=== PATIENT | female | born 1960 | race American Indian/Alaskan Native ===

== ENCOUNTER 2019-11-30 07:10 | Emergency (ER) | payer OTHER ==
--- NOTE | 2019-11-30 07:38 | Cat Scan Report ---
CT HEAD WITHOUT CONTRAST INDICATION / CLINICAL INFORMATION: MAIN: neuro deficits <6hrs or sx present upon awakening RT SIDE DEFICITS, LAST NORMAL 11P LAST NIGHT CODE STROKE [phone]. TECHNIQUE: All CT scans at this location are performed using CT dose reduction for ALARA by means of automated e xposure control. COMPARISON: None available. FINDINGS: HEMORRHAGE: None. EXTRA-AXIAL SPACES: Normal in size and morphology for the patient's age. VENTRICULAR SYSTEM: Normal in size and morphology for the patient's age. CEREBRAL PARENCHYMA: No significant abnormality. No acute territorial infarct. MIDLINE SHIFT OR HERNIATION: None. CEREBELLUM / BRAINSTEM: No significant abnormality. ORBITS: Normal as visualized. SOFT TISSUES of HEAD: No significant abnormality. CALVARIUM: No significant abnormality. PARANASAL SINUSES / MASTOID AIR CELLS: Normal as visualized. ADDITIONAL FINDINGS: None. IMPRESSION: 1. No acute intracranial abnormality. COMMUNICATION: Time of Communication (HEAD OF MATHEMATICS/CDT): 6:30 AM Licensed Practitioner Receiving Report: ED physician Signer Name: Griselda Olsen MD Signed: 11/30/2019 7:34 AM Workstation Name: [id number]
--- NOTE | 2019-11-30 07:47 | Emergency Department Report ---
ED Neuro Deficit HPI - General Chief Complaint: Neuro Symptoms/Deficit Stated Complaint: POSS STROKE Time Seen by Provider: 11/30/19 07:30 Source: patient, EMS Mode of arrival: Stretcher Limitations: Other - History of Present Illness Initial Comments: Patient is 58 years old female with past medical history of hypertension. Patient presented to the ER for evaluation of possible stroke. Patient is a phasic and with significant right facial droop and right upper extremity weakness. Information from the nurse that patient went to bed around 11:00 last night in her normal status and she woke up with this symptoms. Collateral information received from patient charla Jones. Stroke protocol immediately initiated in the ER. Patient moved to CT for emergent CT brain without contrast. Stroke telemetry neurology immediately contacted. Patient examined by neurologist via video conference and stated that patient is not a TPA candidate however patient moved again quickly to the CT for a CT angios of the neck and brain. -: unknown Location: speech, right face, right arm Presenting Symptoms: Present: Weak/Paralyzed One Side History of same: Yes Place: home - Related Data Allergies/Adverse Reactions: Allergies Allergy/AdvReac Type Severity Reaction Status Date / Time No Known Allergies Allergy Verified 11/30/19 07:14 ED Review of Systems ROS: Stated complaint: POSS STROKE Other details as noted in HPI Comment: All other systems reviewed and negative Constitutional: denies: chills, fever Respiratory: denies: cough, shortness of breath, SOB with exertion Cardiovascular: denies: chest pain, palpitations Gastrointestinal: denies: abdominal pain, nausea, vomiting Musculoskeletal: denies: back pain Neurological: weakness, numbness. denies: headache, paresthesias ED Past Medical Hx - Past Medical History Previous Medical History?: Yes Hx Hypertension: Yes ED Neuro Physical Exam - General Limitations: Other General appearance: alert, in no apparent distress Suspected Stroke: Yes - Head Head exam: Present: atraumatic - Eye Eye exam: Present: normal appearance, PERRL - ENT ENT exam: Present: normal exam, normal orophraynx, mucous membranes moist - Neck Neck exam: Present: normal inspection, full ROM. Absent: tenderness, meningismus, lymphadenopathy, thyromegaly - Respiratory Respiratory exam: Present: normal lung sounds bilaterally - Cardiovascular Cardiovascular Exam: Present: regular rate, normal rhythm, normal heart sounds - GI/Abdominal GI/Abdominal exam: Present: soft, normal bowel sounds. Absent: distended, tenderness, guarding, rebound, rigid, organomegaly, mass, bruit, pulsatile mass, hernia - Extremities Exam Extremities exam: Present: normal inspection, full ROM, normal capillary refill. Absent: pedal edema, calf tenderness - Back Exam Back exam: Present: normal inspection, full ROM. Absent: CVA tenderness (R), CVA tenderness (L) - Neurological Exam Neurological exam: Present: alert - NIHSS Assessment Interval: Baseline 1a. Level of Consciousness: alert/keenly responsive 1b. LOC Questions: aphasic 1c. LOC Commands: performs 1 task correctly 2. Best Gaze: normal 3. Visual: no visual loss 4. Facial Palsy: partial paralysis 5b. Motor Arm Right: drift 5a. Motor Arm Left: no drift 6a. Motor Leg Left: no drift 6b. Motor Leg Right: no drift 7. Limb Ataxia: absent 8. Sensory: normal 9. Best Language: severe aphasia 10. Dysarthria: severe dysarthria 11. Extinction/Inattention: no abnormality Total Score: 10 Stroke Severity: Moderate Stroke - Psychiatric Psychiatric exam: Present: normal mood - Skin Skin exam: Present: warm, intact, normal color ED Course Vital Signs 11/30/19 11/30/19 11/30/19 07:23 07:27 07:30 Pulse Rate 81 75 Respiratory 16 15 15 Rate Blood Pressure 172/92 O2 Sat by Pulse 99 Oximetry 11/30/19 11/30/19 11/30/19 07:46 08:00 08:16 Pulse Rate 78 76 78 Respiratory 22 22 15 Rate Blood Pressure 165/106 165/106 119/93 O2 Sat by Pulse 99 98 98 Oximetry 11/30/19 11/30/19 11/30/19 08:30 09:00 09:30 Pulse Rate 82 73 76 Respiratory 15 17 20 Rate Blood Pressure 119/93 142/77 153/80 O2 Sat by Pulse 100 98 Oximetry 11/30/19 11/30/19 10:00 10:30 Pulse Rate Respiratory Rate Blood Pressure 153/80 178/90 O2 Sat by Pulse 100 100 Oximetry - Lab Data Result diagrams: 11/30/19 07:42 11/30/19 07:42 Lab Results 11/30/19 11/30/19 11/30/19 Range/Units 07:42 07:42 07:42 WBC 5.9 (4.5-11.0) K/mm3 RBC 4.47 (3.65-5.03) M/mm3 Hgb 13.5 (10.1-14.3) gm/dl Hct 40.7 (30.3-42.9) % MCV 91 (79-97) fl MCH 30 (28-32) pg MCHC 33 (30-34) % RDW 14.1 (13.2-15.2) % Plt Count 259 (140-440) K/mm3 Lymph % (Auto) 34.6 (13.4-35.0) % [place] % (Auto) 8.9 H (0.0-7.3) % Eos % (Auto) 2.1 (0.0-4.3) % Baso % (Auto) 1.1 (0.0-1.8) % Lymph # 2.0 (1.2-5.4) K/mm3 [place] # 0.5 (0.0-0.8) K/mm3 Eos # 0.1 (0.0-0.4) K/mm3 Baso # 0.1 (0.0-0.1) K/mm3 Seg Neutrophils % 53.3 (40.0-70.0) % Seg Neutrophils # 3.1 (1.8-7.7) K/mm3 PT 12.4 (12.2-14.9) Sec. INR 0.92 (0.87-1.13) APTT 27.8 (24.2-36.6) Sec. Thrombin Time 16.2 (15.1-19.6) Sec. Sodium (137-145) mmol/L Potassium (3.6-5.0) mmol/L Chloride (98-107) mmol/L Carbon Dioxide (22-30) mmol/L Anion Gap mmol/L BUN (7-17) mg/dL Creatinine (0.7-1.2) mg/dL Estimated GFR ml/min BUN/Creatinine Ratio % Glucose (65-100) mg/dL Calcium (8.4-10.2) mg/dL Total Bilirubin (0.1-1.2) mg/dL Direct Bilirubin (0-0.2) mg/dL AST (5-40) units/L ALT (7-56) units/L Alkaline Phosphatase (35-129) units/L Troponin T (0.00-0.029) ng/mL Total Protein (6.3-8.2) g/dL Albumin (3.9-5) g/dL Albumin/Globulin Ratio % //20 Range/Units 07:42 WBC (4.5-11.0) K/mm3 RBC (3.65-5.03) M/mm3 Hgb (10.1-14.3) gm/dl Hct (30.3-42.9) % MCV (79-97) fl MCH (28-32) pg MCHC (30-34) % RDW (13.2-15.2) % Plt Count (140-440) K/mm3 Lymph % (Auto) (13.4-35.0) % [place] % (Auto) (0.0-7.3) % Eos % (Auto) (0.0-4.3) % Baso % (Auto) (0.0-1.8) % Lymph # (1.2-5.4) K/mm3 [place] # (0.0-0.8) K/mm3 Eos # (0.0-0.4) K/mm3 Baso # (0.0-0.1) K/mm3 Seg Neutrophils % (40.0-70.0) % Seg Neutrophils # (1.8-7.7) K/mm3 PT (12.2-14.9) Sec. INR (0.87-1.13) APTT (24.2-36.6) Sec. Thrombin Time (15.1-19.6) Sec. Sodium 138 (137-145) mmol/L Potassium 3.7 (3.6-5.0) mmol/L Chloride 103.2 (98-107) mmol/L Carbon Dioxide 20 L (22-30) mmol/L Anion Gap 19 mmol/L BUN 15 (7-17) mg/dL Creatinine 0.7 (0.7-1.2) mg/dL Estimated GFR > 60 ml/min BUN/Creatinine Ratio 21 % Glucose 115 H (65-100) mg/dL Calcium 9.4 (8.4-10.2) mg/dL Total Bilirubin 0.30 (0.1-1.2) mg/dL Direct Bilirubin < 0.2 (0-0.2) mg/dL AST 15 (5-40) units/L ALT 12 (7-56) units/L Alkaline Phosphatase 83 (35-129) units/L Troponin T < 0.010 (0.00-0.029) ng/mL Total Protein 7.0 (6.3-8.2) g/dL Albumin 4.2 (3.9-5) g/dL Albumin/Globulin Ratio 1.5 % - EKG Data -: EKG Interpreted by Me EKG shows normal: sinus rhythm Rate: normal Interpretation: no acute changes - Radiology Data Radiology results: report reviewed - Medical Decision Making Patient is 58 years old female with past medical history of hypertension. Patient presented to the ER for evaluation of possible stroke. Patient is a phasic and with significant right facial droop and right upper extremity weakness. Information from the nurse that patient went to bed around 11:00 last night in her normal status and she woke up with this symptoms. Collateral information received from patient enriquetaanc Mr. Jones. Stroke protocol immediately initiated in the ER. Patient moved to CT for emergent CT brain without contrast. Stroke telemetry neurology immediately contacted. Patient examined by neurologist via video conference and stated that patient is not a TPA candidate however patient moved again quickly to the CT for a CT angios of the neck and brain. I received a call from radiologist stating that patient CT angios of the brain showed M2 segment occlusion on the left side. I immediately discussed the patient with the neurologist Dr.Yazan Sierra. Patient accepted to be transferred to [facility] for emergency thrombectomy. Patient discussed with Dr. Dunlap and he accepted the patient to be transferred to [place]. Patient flew to [place] for thrombectomy. Patient also discussed with Dr. Barber from [facility] she agreed with a transfer Critical Care Time: Yes Critical care time in (mins) excluding proc time.: 45 Critical care attestation.: If time is entered above; I have spent that time in minutes in the direct care of this critically ill patient, excluding procedure time. ED Disposition Clinical Impression: CVA (cerebral vascular accident) Disposition: DC/TX-70 ANOTHER TYPE HLTHCARE Is pt being admited?: No Condition: Stable Referrals: PRIMARY CARE, [Primary Care Provider] - 3-5 Days
[2019-11-30 07:58] LABS: Basophils # (Auto) 0.1 K/mm3 (0.0-0.1); Basophils % (Auto) 1.1 % (0.0-1.8); Eosinophils # (Auto) 0.1 K/mm3 (0.0-0.4); Eosinophils % (Auto) 2.1 % (0.0-4.3); Hematocrit 40.7 % (30.3-42.9); Hemoglobin 13.5 gm/dl (10.1-14.3); Lymphocytes % (Auto) 34.6 % (13.4-35.0); Mean Corpuscular HGB Conc 33 % (30-34); Mean Corpuscular Volume 91 fl (79-97); Monocytes # (Auto) 0.5 K/mm3 (0.0-0.8); Monocytes % (Auto) 8.9 % (0.0-7.3); Platelet Count 259 K/mm3 (140-440); Red Blood Count 4.47 M/mm3 (3.65-5.03); Red Cell Distribution Width 14.1 % (13.2-15.2)
[2019-11-30 08:08] LABS: INR 0.92 (0.87-1.13)
[2019-11-30 08:09] LABS: Partial Thromboplastin Time 27.8 Sec. (24.2-36.6)
[2019-11-30 08:18] LABS: Alanine Aminotransferase 12 units/L (7-56); Albumin 4.2 g/dL (3.9-5); BUN/Creatinine Ratio 21; Blood Urea Nitrogen 15 mg/dL (7-17); Calcium 9.4 mg/dL (8.4-10.2); Hemolysis Index 7
[2019-11-30 08:19] LABS: Bilirubin,Direct < 0.2 mg/dL (0-0.2)
[2019-11-30 10:41] VITALS: BP 178/90
--- NOTE | 2019-11-30 10:44 | Cat Scan Report ---
CTA neck without and with intravenous contrast material CLINICAL HISTORY: Cerebrovascular accident. Right-sided weakness. TECHNIQUE: Following acquisition of a timing bolus 0.625 mm thick contiguous axial scans were obtained from aort ic arch to the skull base during rapid bolus intravenous contrast infusion. In addition to evaluation of axial source images multiplanar reconstructions were produced and reviewed for this report. 3 collin ne MIP reconstructions were produced and reviewed. FINDINGS: Thoracic aorta:No abnormalities are identified along the course of the thoracic aorta..The origins of the great vessels have an unremarkable appearance. Brachiocephalic artery, left common carotid arter y origin and left subclavian artery all have an unremarkable appearance. Right carotid artery:No abnormalities are seen along the course of the RCCA, at the right carotid bif urcation or along the cervical portions of the GRAHAM. Left carotid artery: No abnormalitiies are noted along the course of the left common carotid artery, at the left carotid bifurcaiton or along th ethe course of the cervical segments of the LICA. Posterior circulation:The vertebral arterires have an unremarkable appearance. Both vertebral arterie s contribute to the basilar artery origin. The basilar artery has an unremarkable appearance. The degree of stenosis, if any, is determined utilizing NASCET like criteria. In this case there is no indication of hemodynamically significant stenosis at the carotid bifurcations or elsewhere. Evaluation of the thyroid gland reveals several mixed attenuation thyroid nodules, the largest of the se measures about 8 mm in diameter. Based on patient's age and size criteria no further evaluation is required. Evaluation of the nonvascular soft tissue structures reveal no additional abnormality. The re is no indication of cervical lymphadenopathy. No abnormalities are seen along the course of the ai rway. Visualized portions of the parotid glands and the submandibular salivary glands have a normal a ppearance. Evaluation of the lung apices reveals no evidence of lung nodule or infiltrate. Evaluation of the cervical spine is remarkable for mild cervical spondylosis with loss of disc height and anterior and posterior osteophyte formation at multiple levels. There is no indication of centra l canal stenosis. Mild left-sided foraminal narrowing is present in several locations. IMPRESSION: 1. No indication of atherosclerotic disease or stenosis on CTA neck. Contrast dose report: Omnipaque 350: 100 ml, administered intravenously All CT examinations performed at this facility utilize modulated dose reduction, iterative reconstruc tion or weight-based dosing, as appropriate, to obtain a radiation dose which is as low as can reason ably be achieved. Signer Name: See Carranza MD Signed: 11/30/2019 10:40 AM Workstation Name: [id number]
--- NOTE | 2019-11-30 10:46 | Cat Scan Report ---
CTA head with intravenous contrast CLINICAL HISTORY: cva TECHNIQUE: 0.625 mm thick contiguous axial scans were obtained from the skull base to the skull vertex during r apid bolus administration of intravenous contrast material. Multiplanar reconstructions were produced in the coronal and sagittal planes. In addition 3 plane MIP instructions were produced and reviewed for this report. The axial source images and reconstructed images were reviewed for this report. CONTRAST DOSE REPORT: Omnipaque 350: 100 ml administered intravenously. All CT scans at this location are performed using CT dose reduction for ALARA by means of automated e xposure control. FINDINGS: Internal carotid arteries:Josue, cavernous, opthalmic, clinoid and supraclinoid segments of the ICAs have an unremarkable appearance. Middle cerebral arteries: There is a branch occlusion of an M2 segment of the left middle cerebral ar autumn in the sylvian fissure. This located about 7 mm distal to the terminal bifurcation of the left M 1 segment. There is resultant decreased size and number of M2 and M3 branches of the left middle cere bral artery. Contrast density within the visualized left MCA branches is decreased compared to those on the right. The location of the occlusion is best demonstrated on sagittal reconstructed sequences (series 606, image 52 and 53 and axial 3-D mapping reconstruction, series 605 image 22).) The right middle cerebral artery, right MCA bifurcations, insular and opercular branches of the right middle cerebral artery have an unremarkable appearance. Anterior cerebral arteries:No abnormality. Vertebral arteries: No dominant vertebral arteries both contribute to the basilar artery origin. Basi lar artery has an unremarkable appearance. Basilar artery: No abnormality Posterior cerebral arteries: Symmetrical appearing posterior cerebral arteries are demonstrated. Dural sinuses: Dural venous sinuses are well demonstrated on this exam. There is no evidence of dural sinus thrombosis. 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 IMPRESSION: 1. Findings indicate M2 segment branch occlusion on the left as described in detail above. There is r esultant decreased number of left-sided insular and opercular MCA branches in decreased contrast dens ity in the left MCA distribution. Time of discovery: 0925 Central standard time. Notification: I called report of this study to Dr. Waddell of the [facility] emergency departm ent at about 0940 hours Central standard time. Signer Name: See Carranza MD Signed: 11/30/2019 10:41 AM Workstation Name: [id number]
--- NOTE | 2019-11-30 11:12 | Consultation ---
History of Present Illness Consult date: 11/30/19 History of present illness: [facility] Tele[facility]urology Consult Services Date of Service: 11/30/2019 07:41:28 Impression: Rule Out Acute Ischemic Stroke Large Vessel Infarct MCA Distribution Infarct Comments/Sign-Out: Patient presented with right side weakness and not talking well. She is not able to name or speak, moves all ext. - Spoke with DANELLE in [place] and accepted patient for transfer for possible thrombectomy - Permissive HTN and IV fluids - ASA Mechanism of Stroke: Possible Thromboembolic Possible Cardioembolic Metrics: Last Known Well: 11/29/2019 23:00:00 [employer] Notification Time: 11/30/2019 07:40:54 Arrival Time: 11/30/2019 07:30:00 Stamp Time: 11/30/2019 07:41:28 Time First Login Attempt: 11/30/2019 07:47:00 Video Start Time: 11/30/2019 07:47:00 Symptoms: aphasic NIHSS Start Assessment Time: 11/30/2019 07:47:37 Patient is not a candidate for tPA. Patient was not deemed candidate for tPA thrombolytics because of Last Well Known Above 4.5 Hours. Video End Time: 11/30/2019 08:00:00 CT head showed no acute hemorrhage or acute core infarct. CT head was reviewed. Clinical Presentation is Suggestive of Large Vessel Occlusive Disease, Recommendations are as Follows Advanced Imaging is Suggestive of Large Vessel Occlusion, Neurointerventional Specialist to be Consulted. Discussed with Neurointerventionalist on 11/30/2019 11:09:50 ED Physician notified of diagnostic impression and management plan on 11/30/2019 07:51:56 Our recommendations are outlined below. Recommendations: Activate Stroke Protocol Admission/Order Set Stroke/Telemetry Floor Neuro Checks Bedside Swallow Eval DVT Prophylaxis IV Fluids, Normal Saline Head of Bed Below 30 Degrees Euglycemia and Avoid Hyperthermia (PRN Acetaminophen) Antiplatelet Therapy Recommended Recommended Scan: MRI Head Echocardiogram - Transthoracic Echocardiogram Lipid Panel to Be Obtained, if Not Done in the Last 30 Days Therapies: Physical Therapy, Occupational Therapy, Speech Therapy Assessment When Applicable Dysphaghia Screen: Swallow Evaluation, Bedside NPO Until Swallow Evaluation DVT prophylaxis: Choice of Primary Team Disposition: Neurology Follow Up Recommended Sign Out: Discussed with Emergency Department Provider History of Present Illness: Patient is a 58 year old Female. Patient was brought by EMS for symptoms of aphasic Patient presented with right side weakness and not talking well. She is not able to name or speak, moves all ext. CT head showed no acute hemorrhage or acute core infarct. CT head was reviewed. Examination: 1A: Level of Consciousness - Alert; keenly responsive + 0 1B: Ask Month and Age - Aphasic + 2 1C: Blink Eyes & Squeeze Hands - Performs Both Tasks + 0 2: Test Horizontal Extraocular Movements - Normal + 0 3: Test Visual Marquez - No Visual Loss + 0 4: Test Facial Palsy (Use Grimace if Obtunded) - Minor paralysis (flat nasolabial fold, smile asymmetry) + 1 5A: Test Left Arm Motor Drift - No Drift for 10 Seconds + 0 5B: Test Right Arm Motor Drift - No Drift for 10 Seconds + 0 6A: Test Left Leg Motor Drift - No Drift for 5 Seconds + 0 6B: Test Right Leg Motor Drift - No Drift for 5 Seconds + 0 7: Test Limb Ataxia (FNF/Heel-Silverman) - No Ataxia + 0 8: Test Sensation - Normal; No sensory loss + 0 9: Test Language/Aphasia - Severe Aphasia: Fragmentary Expression, Inference Needed, Cannot Identify Materials + 2 10: Test Dysarthria - Mild-Moderate Dysarthria: Slurring but can be understood + 1 11: Test Extinction/Inattention - No abnormality + 0 NIHSS Score: 6 Patient was informed the Neurology Consult would happen via TeleHealth consult by way of interactive audio and video telecommunications and consented to receiving care in this manner. Due to the immediate potential for life-threatening deterioration due to underlying acute neurologic illness, I spent 35 minutes providing critical care. This time includes time for face to face visit via telemedicine, review of medical records, imaging studies and discussion of findings with providers, the patient and/or family. Dr Shoaib Sierra [employer] Case [id number] Medications and Allergies Allergies Allergy/AdvReac Type Severity Reaction Status Date / Time No Known Allergies Allergy Verified 11/30/19 07:14 Physical Examination - Vital Signs Vital Signs: Vital Signs Pulse Resp 81 16 11/30/19 07:23 11/30/19 07:23 Results - Laboratory Findings CBC and BMP: 11/30/19 07:42 11/30/19 07:42 Abnormal Lab Findings: Abnormal Labs 11/30/19 11/30/19 07:42 07:42 [place] % (Auto) 8.9 H Carbon Dioxide 20 L Glucose 115 H
--- NOTE | 2019-11-30 11:53 | XRay Report ---
CHEST 1 VIEW 11/30/2019 11:15 AM INDICATION / CLINICAL INFORMATION: stroke. COMPARISON: None available. FINDINGS: SUPPORT DEVICES: None. HEART / MEDIASTINUM: No significant abnormality. LUNGS / PLEURA: No significant pulmonary or pleural abnormality. No pneumothorax. ADDITIONAL FINDINGS: No significant additional findings. IMPRESSION: 1. No acute abnormality of the chest. Signer Name: Sanya Pal MD Signed: 11/30/2019 11:49 AM Workstation Name: [id number]
== END 2019-11-30 11:57 | disposition other institution (70) ==
LOC: ED 07:10
DX: I63.9 Cerebral infarction, unspecified (principal); I10 Essential (primary) hypertension
CPT/HCPCS: 36415; 70450; 70496; 70498; 71045; 80048; 80076; 82962; 84484; 85025; 85610; 85670; 85730; 93005; 93010; 99291; Q9967

== ENCOUNTER 2021-06-06 10:09 | Outpatient (CLI) | payer MEDICAID ==
--- NOTE | 2021-06-28 09:43 | Mammography Report ---
DIGITAL SCREENING MAMMOGRAM WITH CAD, 06/06/2021 CLINICAL INFORMATION / INDICATION: Routine screening mammography. TECHNIQUE: Digital bilateral 2D mammography was obtained in the craniocaudal and mediolateral obliqu e projections. This examination was interpreted with the benefit of Computer-Aided Detection analysis . COMPARISON: None available FINDINGS: Breast Density: There are scattered areas of fibroglandular density. No dominant mass, suspicious calcifications, or architectural distortion in either breast. IMPRESSION: No mammographic evidence of malignancy. Follow up recommendation: Routine yearly BI-RADS Category 1: Negative. A "normal" or negative report should not discourage follow up or biopsy of a clinically significant f inding. A written summary of these findings will be mailed to the patient. The patient will be entered into a mammography reporting system which will generate a reminder letter for the patient's next appointmen t at the appropriate interval. The [employer] recommends yearly mammograms starting at age 40 and continuing as l fco as a woman is in good health. Breast MRI is recommended for women with an approximate 20-25% or greater lifetime risk of breast cancer, including women with a strong family history of breast or ova rico cancer or who have been treated for Hodgkin's disease. Signer Name: Yi Magdaleno MD Signed: 06/28/2021 9:39 AM Workstation Name: [employer]
== END 2021-06-06 10:10 | disposition home or self-care (01) ==
LOC: SPVWC 10:09
PROVIDERS: ATTEND Family Medicine
DX: Z12.31 Encounter for screening mammogram for malignant neoplasm of breast (principal)
CPT/HCPCS: 77067